=== PATIENT | male | born 1960 | race Caucasian/White ===

== ENCOUNTER 2022-06-03 07:53 | Emergency (ER) | payer MEDICARE ==
[~2022-06-03] VITALS: Ht 185.4 cm; Wt 111.4 kg
[2022-06-03] MEDS ORDERED: FERR325T27 PO (08:08)
[2022-06-03] MEDS ORDERED: AMLO-258 PO (08:08)
[2022-06-03] MEDS ORDERED: SIMV-261 PO (08:08)
[2022-06-03] MEDS ORDERED: GABA-1181 PO (08:08)
[2022-06-03] MEDS ORDERED: MAGN400T57 PO (08:08)
[2022-06-03] MEDS ORDERED: METHOCARBAMOL 500 MG TABLET PO ONE (08:45)
[2022-06-03] MEDS ORDERED: KETOROLAC TROMETHAMINE 60 MG/2 ML VIAL IM ONE (08:45)
[2022-06-03 13:41] VITALS: BP 130/75
== END 2022-06-03 15:14 | disposition home or self-care (01) ==
LOC: EMS 07:54
DX: G89.29 Other chronic pain (principal); M54.9 Dorsalgia, unspecified; E11.9 Type 2 diabetes mellitus without complications; E78.00 Pure hypercholesterolemia, unspecified
CPT/HCPCS: 99283; 96372; J1885